=== PATIENT | male | born 1985 | race Caucasian/White ===

== ENCOUNTER 2023-04-06 04:00 | Day surgery (SDC) | payer OTHER ==
[2023-04-06] VITALS (208 sets, daily range): BP systolic 92–138; BP diastolic 49–105
[~2023-04-06] VITALS: Ht 175.3 cm; Wt 89.0 kg
[2023-04-06 08:17] LABS: BASO% 0.6 % (0-3); HEMATOCRIT 42.6 % (39.0-50.0); HEMOGLOBIN 15.1 g/dl (14.0-18.0); IMMATURE GRANULOCYTES 0.2 % (0.0-5.0); LYMPH% 36.2 % (15-41); MEAN CELL VOLUME 89.1 fL CALC (80.0-100.0); MEAN CORPUSCULAR HGB 31.6 pG CALC (26.0-32.0); MEAN CORPUSCULAR HGB CONC 35.4 g/dL CAL (32.0-36.0); MONO% 11.1 % (2-13); NEUT# 2.46 thou/uL (1.82-7.42); NEUT% 48.9 % (42-76); RED BLOOD COUNT 4.78 mill/uL (4.70-6.10)
[2023-04-06 08:30] LABS: ALBUMIN 4.7 g/dL (3.2-5.0); ALKALINE PHOSPHATASE 49 u/l (38-126); ANION GAP 14 (6-22 (CALC)); BILIRUBIN, TOTAL 0.5 mg/dL (0.2-1.3); BUN 17 mg/dL (9-20); BUN/CREATININE RATIO 17 (12-20 (CALC)); CARBON DIOXIDE 25 mmol/l (22-30); CHLORIDE 104 mmol/l (95-108); GFR FOR AFR.AMER. > 60 ML/MIN (>=60 (CALC)); GFR OTHER RACES > 60 ML/MIN (>=60 (CALC)); POTASSIUM 4.2 mmol/l (3.5-5.1); SGOT/AST 34 u/l (17-59); SODIUM 139 mmol/l (137-146); TOTAL PROTEIN 7.4 g/dL (6.3-8.2)
[2023-04-06] MEDS ORDERED: PRILOSEC OTC20 MG PO (08:37)
[2023-04-06] MEDS ORDERED: LEXAPRO20 MG PO (08:37)
[2023-04-06] MEDS ORDERED: METHADONE5 M1 PO (08:40)
[2023-04-06] MEDS ORDERED: NALTREXONE50 MG PO (13:08)
[2023-04-06] MEDS ORDERED: KLONOPIN2 MG PO (13:09)
[2023-04-06] MEDS ORDERED: CLONIDINE0.1 MG PO (13:09)
[2023-04-07 04:26] VITALS: BP 102/61
[2023-04-07 06:21] LABS: BASO% 0.1 % (0-3); HEMATOCRIT 39.2 % (39.0-50.0); HEMOGLOBIN 14.5 g/dl (14.0-18.0); IMMATURE GRANULOCYTES 0.3 % (0.0-5.0); LYMPH% 5.1 % (15-41); MEAN CELL VOLUME 88.1 fL CALC (80.0-100.0); MEAN CORPUSCULAR HGB 32.6 pG CALC (26.0-32.0); NEUT# 13.34 thou/uL (1.82-7.42); NEUT% 89.5 % (42-76); RED BLOOD COUNT 4.45 mill/uL (4.70-6.10); RED CELL DISTRI WIDTH 11.8 % (11.5-15.5)
[2023-04-07 06:30] LABS: ALKALINE PHOSPHATASE 46 u/l (38-126); ANION GAP 12 (6-22 (CALC)); BUN 18 mg/dL (9-20); BUN/CREATININE RATIO 22 (12-20 (CALC)); CARBON DIOXIDE 22 mmol/l (22-30); CHLORIDE 107 mmol/l (95-108); CREATININE 0.8 mg/dL (0.7-1.3); GFR FOR AFR.AMER. > 60 ML/MIN (>=60 (CALC)); GFR OTHER RACES > 60 ML/MIN (>=60 (CALC)); POTASSIUM 3.8 mmol/l (3.5-5.1); SGOT/AST 28 u/l (17-59); SODIUM 137 mmol/l (137-146); TOTAL PROTEIN 6.6 g/dL (6.3-8.2)
[2023-04-07 06:37] VITALS: BP 94/53
[2023-04-07 06:40] LABS: BILIRUBIN, TOTAL 0.8 mg/dL (0.2-1.3)
[2023-04-07 06:44] VITALS: BP 94/53
[2023-04-07 12:32] VITALS: BP 108/60
== END 2023-04-07 16:40 | disposition home or self-care (01) | DRG 897 ==
LOC: MS2 04:00 → ANR 04:00
PROVIDERS: ATTEND Anesthesiology
DX: F11.20 Opioid dependence, uncomplicated (principal)
CPT/HCPCS: J2354; J3475